=== PATIENT | female | born 1990 | race Caucasian/White ===

== ENCOUNTER → 2020-07-28 | Outpatient (CLI) | payer BC | LOC: M.ULTRA 09:00 | PROVIDERS: ATTEND Family Medicine | DX: N63.20 Unspecified lump in the left breast, unspecified quadrant (principal); Z80.3 Family history of malignant neoplasm of breast; R92.8 Other abnormal and inconclusive findings on diagnostic imaging of breast ==

== ENCOUNTER → 2021-02-07 | Outpatient (CLI) | payer OTHER | LOC: M.ULTRA 09:30 | PROVIDERS: ATTEND Family Medicine | DX: N60.01 Solitary cyst of right breast (principal); N63.10 Unspecified lump in the right breast, unspecified quadrant; R22.31 Localized swelling, mass and lump, right upper limb ==